=== PATIENT | female | born 1935 | race Caucasian/White ===

== ENCOUNTER 2020-04-27 13:37 | Emergency (ER) | payer OTHER ==
[2020-04-27 20:34] LABS: ANION GAP 9.8 mmol/L (10-20); CHLORIDE,CL 104 mmol/L (98-107); SODIUM,NA 140 mmol/L (136-145)
[2020-04-27 20:38] LABS: PTT,PARTIAL THROMBOPLSTIN TIME 26.1 SEC (25.6-32.8)
--- NOTE | 2020-04-28 14:28 | CT ---
[id number] CT/CT Head WO IV EXAM: CT Head WO IV CLINICAL DATA: FELL. COMPARISON STUDY: None FINDINGS: No intracranial hemorrhage, extra-axial fluid collection, mass, or acute ischemia. Generalized parenchymal atrophy with scattered areas of nonspecific white matter disease, commonly seen as sequela of chronic microvascular ischemia. Soft tissues are unremarkable. Mild paranasal sinus disease. No evidence of aggressive sinusitis. IMPRESSION: No acute intracranial findings. Nam Jiang DO 04/28/20 1428 Thank you for allowing us to participate in the care of your patient.
== END 2020-04-27 14:39 ==
LOC: VM.ED 14:15
DX: S00.83XA Contusion of other part of head, initial encounter (principal); M54.2 Cervicalgia; M54.9 Dorsalgia, unspecified; Z79.82 Long term (current) use of aspirin; W01.198A Fall on same level from slipping, tripping and stumbling with subsequent striking against other object, initial encounter; Y92.000 Kitchen of unspecified non-institutional (private) residence as the place of occurrence of the external cause
CPT/HCPCS: 36415; 70450; 80048; 85025; 85610; 85730; 99283; 99284-25

== ENCOUNTER 2021-01-06 17:44 | Emergency (ER) | payer MEDICARE ==
[2021-01-06] MEDS ORDERED: Sodium Chloride 0.9% 10 ML Syringe FLUSH PRN (17:58)
[2021-01-06] MEDS ORDERED: Sodium Chloride 0.9% 1,000 ML IV ONE (18:05)
[2021-01-06] MEDS ORDERED: Ondansetron 4 MG/2 ML SDV IVPUSH ONE (18:05)
--- NOTE | 2021-01-06 18:12 | EDM.PDOC ---
ED HPI GENERAL MEDICAL PROBLEM - General Time Seen by Provider: 01/06/21 17:57 Source of Information: Reports: Patient, EMS - History of Present Illness INITIAL COMMENTS - FREE TEXT/NARRATIVE: Faye is an 85 y/o female who is brought to the ER by EMS after she reported having a very large bright red stool. She reports having a small, but normal BM today. She hasn't sarbjit very hungry and had a cup of coffee and a donut to eat. Denies nausea or vomiting, bu about 30 minutes prior to arrival, she reports having the urge to have a bowel movement and then not being able to make it to the toilet and she had a large gush of bright red blood from her rectum. She did them get to the bathroom and had 2 more gushes of bright red blood into the toilet. She denies any pain with this. No dizziness or lightheadedness. Her last colonoscopy was at age 73 and she denies any abnormal tests. - Related Data Allergies Allergy/AdvReac Type Severity Reaction Status Date / Time chlorhexidine Allergy Rash Verified 01/06/21 19:02 clarithromycin Allergy Dizziness Verified 01/06/21 19:02 dog dander Allergy Other Verified 01/06/21 19:02 grass pollen Allergy Cannot Verified 01/06/21 19:02 Remember Horse/Equine Containing Allergy Cannot Verified 01/06/21 19:02 Products Remember kiwi Allergy Other Verified 01/06/21 19:02 mold Allergy Other Verified 01/06/21 19:02 Penicillins Allergy Anaphylactic Verified 01/06/21 19:02 Shock Sulfa (Sulfonamide Allergy Hives Verified 01/06/21 19:02 Antibiotics) Review of Systems - Review of Systems Review Of Systems: See Below Constitutional: Reports: No Symptoms Eyes: Reports: No Symptoms Ears: Reports: No Symptoms Nose: Reports: No Symptoms Mouth/Throat: Reports: No Symptoms Respiratory: Reports: No Symptoms GI/Abdominal: Reports: Bloody Stool, Decreased Appetite Genitourinary: Reports: No Symptoms Musculoskeletal: Reports: No Symptoms Skin: Reports: No Symptoms Neurological: Reports: No Symptoms Psychiatric: Reports: No Symptoms ED EXAM, GENERAL - Physical Exam Exam: See Below General Appearance: Alert, WD/WN, No Apparent Distress (Elderly female.) Eye Exam: Bilateral Eye: PERRL Ears: Normal External Exam, Normal Canal, Hearing Grossly Normal, Normal TMs Nose: Normal Inspection, Normal Mucosa Throat/Mouth: Normal Inspection, Normal Lips, Normal Voice Head: Atraumatic, Normocephalic Neck: Normal Inspection, Supple Respiratory/Chest: No Respiratory Distress, Lungs Clear, Chest Non-Tender Cardiovascular: Normal Peripheral Pulses, Regular Rate, Rhythm, No Murmur GI/Abdominal: Normal Bowel Sounds, Soft, Non-Tender, No Distention (Female) Exam: Deferred Back Exam: Normal Inspection Extremities: Normal Inspection, Normal Range of Motion, No Pedal Edema, Normal Capillary Refill Neurological: Alert, Oriented, CN II-XII Intact, Normal Gait, No Motor/Sensory Deficits Psychiatric: Normal Affect, Normal Mood Skin Exam: Warm, Dry, Intact, Pallor Lymphatic: No Adenopathy Course - Vital Signs Text/Narrative:: 1756 The patient was seen by the [facility]. Labs and EKG ordered. She was given a li ter of NS, Protonix 80mg IVP, and Pepcid 20mg IVP. 1829 Patient up to the commode and had another deep red stool with clots. 1849 Patient now feels dizzy and a bit faint. Continues to have urge to use the bathroom. [facility] contacted, transfer requested. [facility] census high and no beds available. [facility] declined patient transfer until tomorrow AM. [facility] contacted and transfer requested. Patient placed on waiting list for transfer to [facility]. [facility] contacted and transfer refused. 1907 Dr Emelia Petty notified of patient and availability transfer beds. [facility] contacted and no beds available. [address] [facility] contacted[address] Beebe in the ER accepted the patient for transfer. Patient remained stable until departing with EMS crew. Last Recorded V/S: Last Vital Signs Temp 36.8 C 01/06/21 17:50 Pulse 98 01/06/21 17:50 Resp 16 01/06/21 17:50 BP 118/66 01/06/21 17:50 Pulse Ox 92 L 01/06/21 17:50 - Orders/Labs/Meds Orders: Active Orders 24 hr Category Date Time Status EKG Documentation Completion [RC] STAT Care 01/06/21 17:58 Active NPO [Nothing Per Oral Diet] [DIET] Diet 01/07/21 Breakfast Ordered UA RFX CASA AND CULT IF INDIC [URIN] Stat Lab 01/06/21 17:58 Ordered Pantoprazole [ProTONIX IV] 80 mg Med 01/06/21 18:15 Active Sodium Chloride 0.9% [Normal Saline] 250 ml IV Q10H Sodium Chloride 0.9% [Saline Flush] Med 01/06/21 17:58 Active 10 ml FLUSH ASDIRECTED PRN Saline Lock Insert [OM.PC] Stat Oth 01/06/21 17:58 Ordered Medication Orders Pantoprazole Sodium 80 mg/ (Sodium Chloride) 250 mls @ 25 mls/hr IV Q10H CABRERA Last Admin: 01/06/21 18:40 Dose: 25 mls/hr Documented by: SARAVANAN Sodium Chloride (Sodium Chloride 0.9% 10 Ml Syringe) 10 ml FLUSH ASDIRECTED PRN PRN Reason: Keep Vein Open Labs: Laboratory Tests 01/06/21 01/06/21 01/06/21 Range/Units 18:09 18:09 18:09 WBC 10.1 H (4.0-10.0) x10^3/uL RBC 4.83 (4.00-5.50) x10^6/uL Hgb 14.1 (12.0-16.0) g/dL Hct 41.4 (33.0-47.0) % MCV 85.7 (78.0-93.0) fL MCH 29.2 (26.0-32.0) pg MCHC 34.1 (32.0-36.0) g/dL RDW Coeff of Dl 14.3 (10.0-15.0) % Plt Count 295 (130-400) x10^3/uL Neut % (Auto) 59.7 (50.0-80.0) % Lymph % (Auto) 25.3 (25.0-50.0) % [facility] [place] [facility] % (Auto) 7.8 (2.0-11.0) % Eos % (Auto) 6.5 H (0.0-4.0) % Baso % (Auto) 0.7 (0.2-1.2) % PT 10.4 (9.9-12.5) SEC INR 0.9 L (2.0-3.5) APTT 25.4 L (25.6-32.8) SEC Sodium 141 (136-145) mmol/L Potassium 4.5 (3.5-5.1) mmol/L Chloride 104 (98-107) mmol/L Carbon Dioxide 26 (21-32) mmol/L Anion Gap 15.5 H (5-15) mmol/L BUN 15 (7-18) mg/dL Creatinine 0.8 (0.55-1.02) mg/dL Est Cr Clr Drug Dosing TNP Estimated GFR (MDRD) > 60 Glucose 114 H (70-99) mg/dL Calcium 8.9 (8.5-10.1) mg/dL Corrected Calcium 9.5 (8.5-10.1) mg/dL Magnesium 1.8 (1.8-2.4) mg/dL Total Bilirubin 0.3 (0.2-1.0) mg/dL AST 14 L (15-37) U/L ALT 19 (14-59) U/L Alkaline Phosphatase 121 H (46-116) U/L Total Protein 7.7 (6.4-8.2) g/dL Albumin 3.2 L (3.4-5.0) g/dL Globulin 4.5 Albumin/Globulin Ratio 0.71 Ethyl Alcohol < 3 (0-3) mg/dL Meds: Medications Generic Name Dose Route Start Last Admin Trade Name Freq PRN Reason Stop Dose Admin Pantoprazole Sodium 80 mg/ 250 mls @ 25 mls/hr 01/06/21 18:15 01/06/21 18:40 Sodium Chloride IV 25 mls/hr Q10H CABRERA Administration Sodium Chloride 10 ml 01/06/21 17:58 Sodium Chloride 0.9% 10 Ml Syringe FLUSH ASDIRECTED PRN Keep Vein Open Discontinued Medications Generic Name Dose Route Start Last Admin Trade Name Freq PRN Reason Stop Dose Admin Sodium Chloride 1,000 mls @ 999 mls/hr 01/06/21 18:05 01/06/21 18:41 Normal Saline IV 01/06/21 19:05 999 mls/hr ONETIME ONE Administration Ondansetron HCl 4 mg 01/06/21 18:05 01/06/21 18:40 Ondansetron 4 Mg/2 Ml Sdv IVPUSH 01/06/21 18:06 4 mg ONETIME ONE Administration Departure - Departure Time of Disposition: 19:20 Disposition: DC/Tfer to Acute Hospital 02 Condition: Good Clinical Impression: GI bleeding Qualifiers: GI bleed type/associated pathology: unspecified gastrointestinal hemorrhage type Qualified Code(s): K92.2 - Gastrointestinal hemorrhage, unspecified - Discharge Information Referrals: Chiquis Petty PA-C [Primary Care Provider] - Forms: Interfacility Transfer EMTALA Additional Instructions: -Transfer to [facility] via [facility] EMS to Dr Beebe in the ER. Sepsis Event Note (ED) - Focused Exam Vital Signs: Vital Signs Temp Pulse Resp BP Pulse Ox 01/06/21 17:50 36.8 C 98 16 118/66 92 L - My Orders Last 24 Hours: My Active Orders 01/06/21 17:58 EKG Documentation Completion [RC] STAT UA RFX CASA AND CULT IF INDIC [URIN] Stat Sodium Chloride 0.9% [Saline Flush] 10 ml FLUSH ASDIRECTED PRN Saline Lock Insert [OM.PC] Stat 01/06/21 18:15 Pantoprazole [ProTONIX IV] 80 mg Sodium Chloride 0.9% [Normal Saline] 250 ml IV Q10H 01/07/21 Breakfast NPO [Nothing Per Oral Diet] [DIET] - Assessment/Plan Last 24 Hours: My Active Orders 01/06/21 17:58 EKG Documentation Completion [RC] STAT UA RFX CASA AND CULT IF INDIC [URIN] Stat Sodium Chloride 0.9% [Saline Flush] 10 ml FLUSH ASDIRECTED PRN Saline Lock Insert [OM.PC] Stat 01/06/21 18:15 Pantoprazole [ProTONIX IV] 80 mg Sodium Chloride 0.9% [Normal Saline] 250 ml IV Q10H 01/07/21 Breakfast NPO [Nothing Per Oral Diet] [DIET]
[2021-01-06 18:35] LABS: PTT,PARTIAL THROMBOPLSTIN TIME 25.4 SEC (25.6-32.8)
[2021-01-06 18:38] LABS: CHLORIDE,CL 104 mmol/L (98-107); SODIUM,NA 141 mmol/L (136-145)
[2021-01-06 18:42] LABS: ANION GAP 15.5 mmol/L (5-15)
== END 2021-01-06 20:10 | disposition short-term general hospital (02) ==
LOC: VM.ED 17:44
DX: K92.2 Gastrointestinal hemorrhage, unspecified (principal); Z88.0 Allergy status to penicillin; Z88.2 Allergy status to sulfonamides; Z91.048 Other nonmedicinal substance allergy status; Z91.09 Other allergy status, other than to drugs and biological substances; Z88.5 Allergy status to narcotic agent; Z88.1 Allergy status to other antibiotic agents
CPT/HCPCS: 36415; 36430; 80053; 80307; 83735; 85025; 85610; 85730; 86850; 86900; 86901; 86920; 86922; 93005; 96365; 96375; 99284; 99285-25; C9113; J2405; J7030; J7050

== ENCOUNTER 2021-05-25 23:21 | Emergency (ER) | payer MEDICARE ==
[2021-05-25] MEDS ORDERED: Sodium Chloride 0.9% 1,000 ML IV ONE (23:34)
[2021-05-25] MEDS ORDERED: Pantoprazole 40 MG Vial IVPUSH ONE (23:35)
[2021-05-25] MEDS ORDERED: Ondansetron 8 MG in Sodium Chloride 0.9% 100 ML IV ONE (23:35)
[2021-05-25] MEDS ORDERED: Ondansetron 4 MG/2 ML SDV ONE (23:40)
--- NOTE | 2021-05-25 23:42 | EDM.PDOC ---
ED HPI GENERAL MEDICAL PROBLEM - General Chief Complaint: Gastrointestinal Problem Stated Complaint: Nausea/Vomiting Time Seen by Provider: 05/25/21 23:30 Source of Information: Reports: Patient, EMS, Family History Limitations: Reports: No Limitations - History of Present Illness INITIAL COMMENTS - FREE TEXT/NARRATIVE: Patient presents to the ER tonight with nausea and vomiting and indigestion that started about 630 tonight after trying to eat a little tomato soup. Patient says she has had ongoing increased indigestion since starting clindamycin approximately 1 week ago secondary to having some dental work done. She states ever since she started taking the clindamycin she has had some chronic nausea but has been dealing with it and she has been able to drink and eat liquids like soup or ensures with no issues except for just increased indigestion. She states today she was able to drink some fluids but started vomiting about 30 minutes after eating the tomato soup and has vomited 4 times tonight. She denies any abdominal pain or cramping no diarrhea states she feels okay overall the main complaint is the indigestion and the nausea. She denies any chest pain lightheaded dizziness near syncopal episodes she just wants something for the nausea and indigestion. She has no other complaints at this time Onset: Today Duration: Hour(s): Associated Symptoms: Reports: Nausea/Vomiting. Denies: Confusion, Chest Pain, Cough, cough w sputum, Diaphoresis, Fever/Chills, Headaches, Loss of Appetite, Malaise, Shortness of Breath, Syncope - Related Data Allergies Allergy/AdvReac Type Severity Reaction Status Date / Time chlorhexidine Allergy Rash Verified 01/06/21 19:02 clarithromycin Allergy Dizziness Verified 01/06/21 19:02 dog dander Allergy Other Verified 01/06/21 19:02 grass pollen Allergy Cannot Verified 01/06/21 19:02 Remember Horse/Equine Containing Allergy Cannot Verified 01/06/21 19:02 Products Remember kiwi Allergy Other Verified 01/06/21 19:02 mold Allergy Other Verified 01/06/21 19:02 Penicillins Allergy Anaphylactic Verified 01/06/21 19:02 Shock Sulfa (Sulfonamide Allergy Hives Verified 01/06/21 19:02 Antibiotics) Past Medical History Respiratory History: Reports: PE Gastrointestinal History: Reports: GERD Genitourinary History: Reports: Urinary Incontinence Musculoskeletal History: Reports: Back Pain, Chronic, Osteoarthritis Psychiatric History: Reports: Depression Endocrine/Metabolic History: Reports: Hypothyroidism, Obesity/BMI 30+ - Infectious Disease History Infectious Disease History: Reports: None ED ROS GENERAL - Review of Systems Review Of Systems: See Below Constitutional: Reports: No Symptoms HEENT: Reports: No Symptoms Respiratory: Reports: No Symptoms Cardiovascular: Reports: No Symptoms Endocrine: Reports: No Symptoms GI/Abdominal: Reports: Nausea, Vomiting, Other (GERD ). Denies: Abdominal Pain, Anorexia, Black Stool, Bloody Stool, Constipation, Diarrhea, Decreased Appetite, Difficulty Swallowing, Distension, Flatus, Hematemesis, Hematochezia, Mucous in Stool, Stool Incontinence : Reports: No Symptoms Musculoskeletal: Reports: No Symptoms Skin: Reports: No Symptoms Neurological: Reports: No Symptoms Psychiatric: Reports: No Symptoms Hematologic/Lymphatic: Reports: No Symptoms Immunologic: Reports: No Symptoms ED EXAM, GI/ABD - Physical Exam Exam: See Below Exam Limited By: No Limitations General Appearance: Alert, WD/WN, No Apparent Distress, Other (pt looks good smiling talking NAD ) Eyes: Bilateral: Normal Appearance, EOMI Ears: Hearing Grossly Normal Nose: Normal Inspection, Normal Mucosa, No Blood Throat/Mouth: Normal Inspection, Normal Lips, Normal Teeth, Normal Gums, Normal Oropharynx, Normal Voice, No Airway Compromise, Other (mmm) Head: Atraumatic, Normocephalic Neck: Normal Inspection, Supple, Non-Tender, Full Range of Motion Respiratory/Chest: No Respiratory Distress, Lungs Clear, Normal Breath Sounds, No Accessory Muscle Use, Chest Non-Tender Cardiovascular: Normal Peripheral Pulses, Regular Rate, Rhythm, No Edema, No Gallop, No JVD, No Murmur, No Rub GI/Abdominal Exam: Normal Bowel Sounds, Soft, Non-Tender, No Organomegaly, No Distention, No Abnormal Bruit. No: Guarding, Rigid, Rebound, Tender, Abnormal Bowel Sounds Back Exam: Normal Inspection, Full Range of Motion Extremities: Normal Inspection, Normal Range of Motion, No Pedal Edema Neurological: Alert, Oriented, CN II-XII Intact, Normal Cognition, No Motor/Sensory Deficits Psychiatric: Normal Affect, Normal Mood Skin Exam: Warm, Dry, Intact, Normal Color, No Rash Lymphatic: No Adenopathy #1 Interpretation EKG Date: 05/26/21 Time: 00:30 Rhythm: NSR [place]: Normal P-Wave: Present QRS: Normal ST-T: Normal QT: Normal Course - Vital Signs Text/Narrative:: Patient looks well all vital signs within normal limits we will give 1 L normal saline bolus Zofran 4 mg IV 40 mg Protonix IV Patient now states that she is having some middle back pain that is been going on since mid March after multiple falls where she has seen her primary care provider been worked up with x-rays and a CT there is been no noted fractures. Patient states since having the vomiting it is flared the back pain up she rates it about a 4 out of 10. She denies any chest pain or shortness of breath lightheadedness or dizziness at this time We will try Reglan 10 mg IV for the nausea at this time will consider IV pain medication if Reglan does not work for nausea Patient was rechecked states she feels 100% better wishes to go home she states she has no nausea now the indigestion is much better she is okay with going home with mother nausea medicines and following up with her primary care provider in the next 24 hours or she will return here if anything changes she states - Orders/Labs/Meds Orders: Active Orders 24 hr Category Date Time Status EKG 12 Lead [EKG Documentation Completion] [RC] URGENT Care 05/26/21 00:20 Active Meds: Medications Discontinued Medications Generic Name Dose Route Start Last Admin Trade Name Nakia PRN Reason Stop Dose Admin Sodium Chloride 1,000 mls @ 999 mls/hr 05/25/21 23:34 Normal Saline IV 05/26/21 00:34 ONETIME ONE Ondansetron HCl 8 mg/ Sodium 104 mls @ 400 mls/hr 05/25/21 23:35 Chloride IV 05/25/21 23:50 ONETIME ONE Metoclopramide HCl 10 mg 05/26/21 00:16 05/26/21 00:25 Metoclopramide 10 Mg/2 Ml Sdv IVPUSH 05/26/21 00:17 10 mg ONETIME ONE Administration Ondansetron HCl Confirm 05/25/21 23:40 Ondansetron 4 Mg/2 Ml Sdv Administered 05/25/21 23:41 Dose 8 mg .ROUTE .STK-MED ONE Ondansetron HCl Confirm 05/26/21 00:04 Ondansetron 4 Mg/2 Ml Sdv Administered 05/26/21 00:05 Dose 4 mg .ROUTE .STK-MED ONE Ondansetron HCl 4 mg 05/25/21 23:45 05/25/21 23:45 Ondansetron 4 Mg/2 Ml Sdv IVPUSH 05/25/21 23:46 4 mg ONETIME ONE Administration Pantoprazole Sodium 40 mg 05/25/21 23:35 05/25/21 23:50 Pantoprazole 40 Mg Vial IVPUSH 05/25/21 23:36 40 mg ONETIME ONE Administration Departure - Departure Time of Disposition: 01:00 Disposition: Home, Self-Care 01 Clinical Impression: Vomiting, Nausea & vomiting, GERD (gastroesophageal reflux disease) Clinical Impression: (Ruled Out): Acid indigestion - Discharge Information *PRESCRIPTION DRUG MONITORING PROGRAM REVIEWED*: No *COPY OF PRESCRIPTION DRUG MONITORING REPORT IN PATIENT ENRIQUE: No Instructions: Nausea and Vomiting, Adult, [id number] Forms: ED Department Discharge Additional Instructions: Make sure you follow-up with your primary care provider in the morning are within the next 24 hours Make sure you take the Zofran nausea medicine every 4-6 hours as directed for the next 24 hours Make sure you plenty of fluids as tolerated Return here to the emergency room if anything changes or gets worse - Problem List & Annotations (1) GERD (gastroesophageal reflux disease) SNOMED Code(s): 013145101 Code(s): K21.9 - GASTRO-ESOPHAGEAL REFLUX DISEASE WITHOUT ESOPHAGITIS Status: Acute (2) Nausea & vomiting SNOMED Code(s): 48244236 Code(s): R11.2 - NAUSEA WITH VOMITING, UNSPECIFIED Status: Acute (3) Vomiting SNOMED Code(s): 124129761 Code(s): R11.10 - VOMITING, UNSPECIFIED Status: Acute - My Orders Last 24 Hours: My Active Orders 05/26/21 00:20 EKG 12 Lead [EKG Documentation Completion] [RC] URGENT - Assessment/Plan Last 24 Hours: My Active Orders 05/26/21 00:20 EKG 12 Lead [EKG Documentation Completion] [RC] URGENT
[2021-05-25] MEDS ORDERED: Ondansetron 4 MG/2 ML SDV IVPUSH ONE (23:45)
[2021-05-26] MEDS ORDERED: Ondansetron 4 MG/2 ML SDV ONE (00:04)
[2021-05-26] MEDS ORDERED: Ondansetron 4 MG/2 ML SDV IVPUSH ONE (00:10)
[2021-05-26] MEDS ORDERED: Metoclopramide 10 MG/2 ML SDV IVPUSH ONE (00:16)
[2021-05-26] MEDS ORDERED: Take Home: Ondansetron 4 MG Tab.DIS, 2 Tab Pack PO ONE (01:11)
[2021-05-26] MEDS ORDERED: Omeprazole 20 MG Cap.CR PO ONE (01:11)
== END 2021-05-26 01:50 | disposition home or self-care (01) ==
LOC: VM.ED 23:21
DX: K21.9 Gastro-esophageal reflux disease without esophagitis (principal); E66.9 Obesity, unspecified; Z88.8 Allergy status to other drugs, medicaments and biological substances; Z88.1 Allergy status to other antibiotic agents; Z91.048 Other nonmedicinal substance allergy status; Z91.018 Allergy to other foods; Z88.0 Allergy status to penicillin; Z88.2 Allergy status to sulfonamides
CPT/HCPCS: 93005; 96374; 96375; 99284-25; A9270-GY; C9113; J2405; J2765; J7030

== ENCOUNTER 2022-06-05 16:09 | Emergency (ER) | payer MEDICARE | END 2022-06-05 17:47 | disposition home or self-care (01) | LOC: VM.ED 16:09 | DX: M25.461 Effusion, right knee (principal); K21.9 Gastro-esophageal reflux disease without esophagitis; Z88.8 Allergy status to other drugs, medicaments and biological substances | CPT/HCPCS: 73562-RT; 73590-RT; 99284 ==

== ENCOUNTER 2025-06-12 12:42 | Emergency (ER) | payer MEDICARE | END 2025-06-12 13:57 | disposition home or self-care (01) | LOC: VM.ED 12:42 | DX: S01.01XA Laceration without foreign body of scalp, initial encounter (principal); Z88.8 Allergy status to other drugs, medicaments and biological substances; Z91.09 Other allergy status, other than to drugs and biological substances; Z91.018 Allergy to other foods; Z88.0 Allergy status to penicillin; Z88.2 Allergy status to sulfonamides; Z88.1 Allergy status to other antibiotic agents; K21.9 Gastro-esophageal reflux disease without esophagitis; Z79.899 Other long term (current) drug therapy; E03.9 Hypothyroidism, unspecified; E66.9 Obesity, unspecified; W22.8XXA Striking against or struck by other objects, initial encounter | CPT/HCPCS: 12001; 99282; 99283 ==